=== PATIENT | female | born 1990 | race Caucasian/White ===

== ENCOUNTER 2019-06-06 07:20 | Inpatient (IN) | payer BC ==
--- NOTE | 2019-06-06 07:45 | PCM.LDHP ---
L&D History of Present Illness - General Date of Service: 06/06/19 Admit Problem/Dx: Admission Diagnosis/Problem Admission Diagnosis/Problem Source of Information: Patient History Limitations: Reports: No Limitations - History of Present Illness Introduction:: 28-year-old 001 OSCAR 06/11/19 estimated gestational age today is 39 weeks and 2 days. Patient gestational diabetic treated with diet only during this . Previous delivery was 04/14/2008 7 lbs. 9 oz., spontaneous vaginal delivery patient is GBS carrier. Antibiotics will be started. Patient's cervix on presentation to labor and delivery is 1 cm dilated 20% effaced soft posterior -3 vertex presentation, slight change from previous exam in the clinic on 05/31/19. 12/26/18 blood type O-positive antibody screen negative hemoglobin/hematocrit 12.9 /37.4% platelets 171,000 rubella immune, serology nonreactive, urine culture mixed zuleika, hepatitis B surface antigen negative, HIV negative, GC and chlamydia probe negative 03/20/19 end illness/medical pro 0.9/38.3 platelets 183,001 hour OB glucose screen 150 serology nonreactive. 03/22/19 3 hour glucose tolerance test fasting 77, 1 hour 185, two-hour 183, 3 hour 116. group B strep positive Plan induction of labor and delivery. Tdap given 25 April 2019 12/26/18 ultrasound obtained on 10/24/18 7 weeks 1 day estimated date of confinement by that ultrasound 06/11/19. By LMP OSCAR 05/23/19. The working OSCAR has been 06/11/19 since that ultrasound at 7 weeks 1 day. Improves with: Reports: None Worsens with: Reports: None Associated Symptoms: Reports: N - Related Data Allergies/Adverse Reactions: Allergies Allergy/AdvReac Type Severity Reaction Status Date / Time No Known Allergies Allergy Verified 06/06/19 07:45 Past Medical History : 2 Para: 1 (1001) LMP (Approximate): H&P Review of Systems - Review of Systems: Review Of Systems: See Below General: Reports: No Symptoms HEENT: Reports: No Symptoms Pulmonary: Reports: No Symptoms Cardiovascular: Reports: No Symptoms Gastrointestinal: Reports: No Symptoms Genitourinary: Reports: No Symptoms Musculoskeletal: Reports: No Symptoms Skin: Reports: No Symptoms Psychiatric: Reports: No Symptoms Neurological: Reports: No Symptoms Hematologic/Lymphatic: Reports: No Symptoms Immunologic: Reports: No Symptoms L&D Exam - Exam Exam: See Below - OB Specific Fundal Height In cm: 39 Movement: Active Heart Tones: Present Heart Tones per Min: 135 Heart Rate (FHR) Variability: Moderate (6-25 bmp) Presentation: Vertex - Rene Score Rene Score Cervix Position: Posterior Rene Score Consistency: Soft Rene Score Effacement: 0-30% Rene Score Dilation: 1-2 cm Rene Score 's Station: -3 Rene Score Total: 3 - Exam General: Alert, Oriented HEENT: Conjunctiva Clear, Mucosa Moist & [place], Normal Nasal Septum, Posterior Pharynx Clear, TMs Clear, PERRLA Neck: Supple, Trachea Midline Lungs: Clear to Auscultation, Normal Respiratory Effort Cardiovascular: Regular Rate, Regular Rhythm GI/Abdominal Exam: Normal Bowel Sounds, Soft, Non-Tender Genitourinary: Normal external exam, Normal bimanual exam, Normal speculum exam Back Exam: Normal Inspection, Full Range of Motion Extremities: Normal Inspection, Normal Range of Motion, Non-Tender, No Pedal Edema, Normal Capillary Refill Skin: Warm, Dry, Intact Neurological: Reflexes Equal Bilateral Psychiatric: Alert, Normal Affect, Normal Mood - Problem List (1) 39 weeks gestation of SNOMED Code(s): 96507136 ICD Code: Z3A.39 - 39 WEEKS GESTATION OF Status: Acute Current Visit: Yes (2) Gestational diabetes mellitus (GDM) affecting , antepartum SNOMED Code(s): 93153215185776, 97360805852129 ICD Code: O24.419 - GESTATIONAL DIABETES MELLITUS IN , UNSP CONTROL Status: Acute Current Visit: Yes (3) GBS (group B Streptococcus carrier), +RV culture, currently SNOMED Code(s): 5535540556400, 605264127, 4804868924435 ICD Code: O99.820 - STREPTOCOCCUS B CARRIER STATE COMPLICATING Status: Acute Current Visit: Yes Problem List Initiated/Reviewed/Updated: No
[2019-06-06] MEDS ORDERED: Ondansetron 4 MG/2 ML SDV IVPUSH PRN (07:47)
[2019-06-06] MEDS ORDERED: Nalbuphine 10 MG/1 ML Vial IVPUSH PRN (07:47)
[2019-06-06] MEDS ORDERED: Sodium Chloride 0.9% 10 ML Syringe FLUSH PRN (07:47)
[2019-06-06] MEDS ORDERED: fentaNYL 100 MCG/2 ML SDV EPIDUR PRN (07:59)
[2019-06-06] MEDS ORDERED: diphenhydrAMINE 50 MG/ML SDV IVPUSH PRN (07:59)
[2019-06-06] MEDS ORDERED: Ampicillin 2 GM in Sodium Chloride 0.9% 100 ML IV ONE (08:00)
[2019-06-06] MEDS ORDERED: Oxytocin/Lactated Ringers 10 UNIT/1,000 ML BAG IV SCH (08:00)
[2019-06-06] MEDS ORDERED: Oxytocin/Lactated Ringers 20 UNIT/1,000 ML BAG IV SCH (08:00)
[2019-06-06] MEDS: Misoprostol 25 MCG (1/4 of 100 MCG) Tab VAG SCH ×6 (08:01→23:41)
--- NOTE | 2019-06-06 08:05 | PCM.PREANE ---
Preanesthetic Assessment - Procedure Proposed Procedure: raad - Anesthesia/Transfusion/Family Hx Anesthesia History: Prior Anesthesia Without Reaction Family History of Anesthesia Reaction: No Transfusion History: No Prior Transfusion(s) - Review of Systems General: No Symptoms Pulmonary: No Symptoms Cardiovascular: No Symptoms Gastrointestinal: No Symptoms Neurological: No Symptoms Other: Reports: Diabetes (gestational diabetes), Thyroid Problems (right thyroid removed due to nodule) - Physical Assessment Vital Signs: 123/85 94 16 97.6 Height: 5 ft 6 in Weight: 93.894 kg ASA Class: 2 Mental Status: Alert & Oriented x3 Airway Class: Mallampati = 1 Dentition: Reports: Normal Dentition Thyro-Mental Finger Breadths: 3 Mouth Opening Finger Breadths: 3 ROM/Head Extension: Full Lungs: Clear to Auscultation, Normal Respiratory Effort Cardiovascular: Regular Rate, Regular Rhythm - Allergies Allergies/Adverse Reactions: Allergies Allergy/AdvReac Type Severity Reaction Status Date / Time No Known Allergies Allergy Verified 06/06/19 07:45 - Blood Blood Available: No - Acknowledgements Anesthesia Type Planned: Epidural Pt an Appropriate Candidate for the Planned Anesthesia: Yes Alternatives and Risks of Anesthesia Discussed w Pt/Guardian: Yes Pt/Guardian Understands and Agrees with Anesthesia Plan: Yes PreAnesthesia Questionnaire Cardiovascular History: Reports: None Respiratory History: Reports: None Gastrointestinal History: Reports: GERD (with ) : 2 (39 weeks) Para: 1 Endocrine/Metabolic History: Reports: None Oncologic (Cancer) History: Reports: None - Past Surgical History Endocrine Surgical History: Reports: Thyroid Biopsy - History Comment History Comment: prnatal vit. vits and probiiotic - SUBSTANCE USE Smoking Status *Q: Former Smoker (quit 7 months ago) Tobacco Use Within Last Twelve Months: Cigarettes Second Hand Smoke Exposure: Yes Days Per Week of Alcohol Use: 0 Recreational Drug Use History: No - CURRENT (IN HOUSE) MEDS Current Meds: Current Medications Ampicillin Sodium 2 gm/ Sodium (Chloride) 100 mls @ 200 mls/hr IV ONETIME ONE Stop: 06/06/19 08:29 Ampicillin Sodium 1 gm/ Sodium (Chloride) 100 mls @ 200 mls/hr IV Q4H JONATHAN Lactated Ringer's (Ringers, Lactated) 1,000 mls @ 100 mls/hr IV ASDIRECTED JONATHAN Oxytocin/Lactated Ringer's (Pitocin In Lr 20 Units/1,000 Ml) 20 unit in 1,000 mls @ 500 mls/hr IV .CONTINUOUS JONATHAN Oxytocin/Lactated Ringer's (Pitocin In Lr 10 Units/1,000 Ml) 10 unit in 1,000 mls @ 12 mls/hr IV TITRATE JONATHAN; Protocol Misoprostol (Cytotec) 50 mcg VAG Q3H JONATHAN Nalbuphine HCl (Nubain) 10 mg IVPUSH Q2H PRN PRN Reason: Pain Ondansetron HCl (Zofran) 4 mg IVPUSH Q4H PRN PRN Reason: Nausea/Vomiting Sodium Chloride (Saline Flush) 10 ml FLUSH ASDIRECTED PRN PRN Reason: Keep Vein Open
[2019-06-06] MEDS: Ampicillin 1 GM in Sodium Chloride 0.9% 100 ML IV SCH ×4 (12:11→23:34)
--- NOTE | 2019-06-06 13:11 | PCM.SN ---
- Free Text/Narrative Note: At 1305 hours cervix 1 cm, 50%, soft, posterior, bladder feels full and head at >-4 Cat I FHR.
[2019-06-06] MEDS: Lactated Ringers 1,000 ML IV SCH (13:12)
--- NOTE | 2019-06-06 16:23 | PCM.SN ---
- Free Text/Narrative Note: Cervix 1 cm, 50%, soft, posterior, vertex-3. Continue Cytotec 25 mcg at 1700, 2000, 2300, and 0200 then start Pitocin at 0500, if no contraindication. Cat I FHR.
[2019-06-06] MEDS ORDERED: fentaNYL/Bupivacaine in NS PF 2 MCG-0.125% 250 ML Premix EPIDUR PRN (18:58)
[2019-06-07] MEDS: Misoprostol 25 MCG (1/4 of 100 MCG) Tab VAG SCH ×2 (02:15→08:51)
[2019-06-07] MEDS: Ampicillin 1 GM in Sodium Chloride 0.9% 100 ML IV SCH ×4 (04:18→15:43)
[2019-06-07] MEDS: Lactated Ringers 1,000 ML IV SCH ×4 (04:19→13:57)
--- NOTE | 2019-06-07 07:28 | PCM.SN ---
- Free Text/Narrative Note: Pitocin started at 0600 after Cytotec q3h during the night. Cervix 2 cm, 50% effaced, soft, mid-position. Amniotomy performed at 0724 clear fluid. Cat I FHR before and after amniotomy.
[2019-06-07] MEDS: ePHEDrine 50 MG/ML SDV IVPUSH PRN ×2 (13:43→13:55)
--- NOTE | 2019-06-07 16:16 | PCM.SN ---
- Free Text/Narrative Note: Complete and beginning to push. Decelerations with pushing (early), moderate beat to beat variability, tachycardia noted. Patient stable.
--- NOTE | 2019-06-07 17:57 | PCM.DEL ---
L & D Note - General Info Date of Service: 06/07/19 Mother's Due Date: 06/11/19 - Delivery Note Labor: Augmented by ARM, Augmented by Oxytocin Cervical Ripening Method: Misoprostil Delivery Outcome: Livebirth (Female liveborn at 1718 hrs. on Wednesday06/07/19 over second-degree midline laceration under epidural anesthesia with cervical laceration also noted at 3:00 repaired see below Apgars 8/8 at one and 5 minutes. Weight 3400 g/7 pounds 7.9 ounces. LOP) Delivery Method: Spontaneous Vaginal Delivery-Single Infant Delivery Mode: Spontaneous Presentation: Left Occiput Posterior (LOP) Nuchal Cord: None Prep: Povidone-Iodine (Betadine (Cord around left lower extremity) Anesthesia Type: Epidural Amniotic Fluid Description: Clear Episiotomy Type: None Laceration: 2nd Degree (Midline), Cervical (3:00) Suture type: Other (Monocryl 2) Suture size: 3-0 Placenta: Intact, Spontaneous (172Wednesday06/07/19) Cord: 3 Vessels Estimated Blood Loss: 500 Resuscitation Needed: No : Suctioned, Bulb Syringe, Stimulated, Warmed, [place] Used, Warmer Used Provider: Karri Dominguez Score 1 min: 8 Score 5 min: 8 Induction Criteria - Rene Score Rene Score Dilation: 1-2 cm Rene Score Effacement: 40-50% Rene Score 's Station: -3 Rene Score Consistency: Soft Rene Score Cervix Position: Posterior Rene Score Total: 4 Rene Score Presenting Part: Reports: Cephalic - Induction Gestational Age >/= 39 wks: Yes Medical Indication: Gestational diabetes Estimated Pelvis: Reports: Adequate Reassuring Monitoring Strip: Yes Absence of Tachy Systole: Yes - Augmentation Estimated Pelvis: Reports: Adequate Weight Estimated:: Reports: AGA Reassuring Monitoring Strip: Yes Absence of Tachy Systole: Yes - General Info Date of Service: 06/07/19 Functional Status: Reports: Pain Controlled - Review of Systems General: Reports: No Symptoms HEENT: Reports: No Symptoms Pulmonary: Reports: No Symptoms Cardiovascular: Reports: No Symptoms Gastrointestinal: Reports: No Symptoms Genitourinary: Reports: No Symptoms Musculoskeletal: Reports: No Symptoms Skin: Reports: No Symptoms Neurological: Reports: No Symptoms Psychiatric: Reports: No Symptoms - Patient Data Vitals - Most Recent: Last Vital Signs Temp 97.6 F 06/06/19 07:47 Pulse 94 06/06/19 07:47 Resp 16 06/06/19 07:47 BP 123/84 06/06/19 07:47 Pulse Ox Weight - Most Recent: 207 lb I&O - Last 24 Hours: Intake & Output 06/07/19 06/07/19 06/07/19 06:59 14:59 22:59 Intake Total 120 Balance 120 Lab Results Last 24 Hours: Laboratory Results - last 24 hr 06/06/19 06/06/19 06/07/19 Range/Units 08:23 20:26 00:14 POC Glucose 89 82 (70-105) mg/dL RPR Non-reactive (NONREACTIVE) 06/07/19 06/07/19 06/07/19 Range/Units 04:23 07:13 12:45 POC Glucose 67 L 71 86 (70-105) mg/dL RPR (NONREACTIVE) Med Orders - Current: Current Medications Diphenhydramine HCl (Benadryl) 25 mg IVPUSH Q6H PRN PRN Reason: pruritis Ephedrine Sulfate (Ephedrine Sulfate) 5 mg IVPUSH ASDIRECTED PRN PRN Reason: Hypotension Last Admin: 06/07/19 13:55 Dose: 5 mg Fentanyl (Sublimaze) 100 mcg EPIDUR Q3H PRN PRN Reason: Pain Last Admin: 06/07/19 10:29 Dose: 100 mcg Fentanyl/Bupivacaine HCl (Fentanyl/Bupivacaine/Ns 2 Mcg-0.125% 250 Ml) 2 mcg EPIDUR ONETIME PRN PRN Reason: Cramping Last Admin: 06/07/19 10:28 Dose: 2 mcg Ampicillin Sodium 1 gm/ Sodium (Chloride) 100 mls @ 200 mls/hr IV Q4H JONATHAN Last Admin: 06/07/19 15:43 Dose: 200 mls/hr Lactated Ringer's (Ringers, Lactated) 1,000 mls @ 100 mls/hr IV ASDIRECTED JONATHAN Last Admin: 06/07/19 13:57 Dose: 100 mls/hr Oxytocin/Lactated Ringer's (Pitocin In Lr 20 Units/1,000 Ml) 20 unit in 1,000 mls @ 500 mls/hr IV .CONTINUOUS JONATHAN Last Admin: 06/07/19 15:47 Dose: 500 mls/hr Oxytocin/Lactated Ringer's (Pitocin In Lr 10 Units/1,000 Ml) 10 unit in 1,000 mls @ 12 mls/hr IV TITRATE JONATHAN; Protocol Last Titration: 06/07/19 14:05 Dose: 10 munits/min, 60 mls/hr Nalbuphine HCl (Nubain) 10 mg IVPUSH Q2H PRN PRN Reason: Pain Ondansetron HCl (Zofran) 4 mg IVPUSH Q4H PRN PRN Reason: Nausea/Vomiting Sodium Chloride (Saline Flush) 10 ml FLUSH ASDIRECTED PRN PRN Reason: Keep Vein Open Discontinued Medications Ampicillin Sodium 2 gm/ Sodium (Chloride) 100 mls @ 200 mls/hr IV ONETIME ONE Stop: 06/06/19 08:29 Last Admin: 06/06/19 08:01 Dose: 200 mls/hr Misoprostol (Cytotec) 50 mcg VAG Q3H JONATHAN Last Admin: 06/06/19 17:03 Dose: 25 mcg Misoprostol (Cytotec) 25 mcg VAG Q3H JONATHAN Last Admin: 06/07/19 08:51 Dose: Not Given - Exam General: Alert, Oriented HEENT: Pupils Equal, Mucous Membr. Moist/[place] Neck: Supple Lungs: Clear to Auscultation, Normal Respiratory Effort Cardiovascular: Regular Rate, Regular Rhythm GI/Abdominal Exam: Normal Bowel Sounds, Soft, Non-Tender (Female) Exam: Normal External Exam Extremities: Normal Inspection, Normal Range of Motion, Non-Tender, No Pedal Edema, Normal Capillary Refill Skin: Warm, Dry, Intact Psy/Mental Status: Alert, Normal Affect, Normal Mood - Problem List & Annotations (1) 39 weeks gestation of SNOMED Code(s): 85735120 Code(s): Z3A.39 - 39 WEEKS GESTATION OF Status: Acute Current Visit: Yes (2) Gestational diabetes mellitus (GDM) affecting , antepartum SNOMED Code(s): 42954698351701, 38951734297791 Code(s): O24.419 - GESTATIONAL DIABETES MELLITUS IN , UNSP CONTROL Status: Acute Current Visit: Yes (3) GBS (group B Streptococcus carrier), +RV culture, currently SNOMED Code(s): 3321099064245, 070559785, 5210553610187 Code(s): O99.820 - STREPTOCOCCUS B CARRIER STATE COMPLICATING Status: Acute Current Visit: Yes (4) Second degree laceration of perineum, delivered, current hospitalization SNOMED Code(s): 061087659, 833338988 Code(s): O70.1 - SECOND DEGREE PERINEAL LACERATION DURING DELIVERY Status: Acute Current Visit: Yes (5) Cervical laceration SNOMED Code(s): 673408251 Code(s): S37.63XA - LACERATION OF UTERUS, INITIAL ENCOUNTER Status: Acute Current Visit: Yes Qualifiers: Encounter type: initial encounter Qualified Code(s): S37.63XA - Laceration of uterus, initial encounter Annotation/Comment:: sutured - Problem List Review Problem List Initiated/Reviewed/Updated: No - My Orders Last 24 Hours: My Active Orders 06/07/19 00:00 Blood Glucose Check, Bedside [RC] Q4HR - Assessment Assessment:: Delivered ,
[2019-06-07] MEDS ORDERED: Witch Hazel Medicated Pads 40/Jar TOP PRN (18:07)
[2019-06-07] MEDS ORDERED: Lanolin 100% Cream 7 GM Tube TOP PRN (18:07)
[2019-06-07] MEDS ORDERED: Acetaminophen 325 MG Tab PO PRN (18:07)
[2019-06-07] MEDS ORDERED: Benzocaine/Menthol 20%-0.5% Spray 56 GM Canister TOP PRN (18:07)
[2019-06-07] MEDS: Ibuprofen 600 MG Tab PO PRN (21:39)
[2019-06-08] MEDS ORDERED: Bupivacaine 0.25% 10 ML SDV ONE
[2019-06-08] MEDS: Ibuprofen 600 MG Tab PO PRN ×5 (03:22→23:35)
--- NOTE | 2019-06-08 08:43 | PCM.PN ---
- General Info Date of Service: 06/08/19 Functional Status: Reports: Pain Controlled - Review of Systems General: Reports: No Symptoms HEENT: Reports: No Symptoms Pulmonary: Reports: No Symptoms Cardiovascular: Reports: No Symptoms Gastrointestinal: Reports: No Symptoms Genitourinary: Reports: No Symptoms Musculoskeletal: Reports: No Symptoms Skin: Reports: No Symptoms Neurological: Reports: No Symptoms Psychiatric: Reports: No Symptoms - Patient Data Vitals - Most Recent: Last Vital Signs Temp 97.5 F 06/08/19 04:55 Pulse 58 L 06/08/19 04:55 Resp 14 06/08/19 04:55 BP 108/61 06/08/19 04:55 Pulse Ox 99 06/08/19 04:55 Weight - Most Recent: 207 lb I&O - Last 24 Hours: Intake & Output 06/07/19 06/08/19 06/08/19 22:59 06:59 14:59 Intake Total 120 Balance 120 Lab Results Last 24 Hours: Laboratory Results - last 24 hr 06/07/19 06/08/19 Range/Units 12:45 04:30 WBC 11.95 H (3.98-10.04) K/mm3 RBC 3.50 L (3.98-5.22) M/mm3 Hgb 9.4 L D (11.2-15.7) gm/dl Hct 28.6 L (34.1-44.9) % MCV 81.7 (79.4-94.8) fl MCH 26.9 (25.6-32.2) pg MCHC 32.9 (32.2-35.5) g/dl RDW Std Deviation 39.3 (36.4-46.3) fL Plt Count 135 L (182-369) K/mm3 MPV 11.2 (9.4-12.3) fl Neut % (Auto) 74.3 H (34.0-71.1) % Lymph % (Auto) 18.0 L (19.3-51.7) % [place] % (Auto) 6.9 (4.7-12.5) % Eos % (Auto) 0.4 L (0.7-5.8) Baso % (Auto) 0.1 (0.1-1.2) % Neut # (Auto) 8.89 H (1.56-6.13) K/mm3 Lymph # (Auto) 2.15 (1.18-3.74) K/mm3 [place] # (Auto) 0.82 H (0.24-0.36) K/mm3 Eos # (Auto) 0.05 (0.04-0.36) K/mm3 Baso # (Auto) 0.01 (0.01-0.08) K/mm3 POC Glucose 86 (70-105) mg/dL Med Orders - Current: Current Medications Acetaminophen (Tylenol) 650 mg PO Q4H PRN PRN Reason: mild pain or fever Last Admin: 06/08/19 00:45 Dose: 650 mg Benzocaine/Menthol (Dermoplast Pain Relief Babbitt) 0 gm TOP ASDIRECTED PRN PRN Reason: Perineal Comfort Measure Last Admin: 06/07/19 19:20 Dose: 1 spray Docusate Sodium (Colace) 100 mg PO BID PRN PRN Reason: Constipation Emollient Ointment (Lansinoh Hpa) 0 gm TOP ASDIRECTED PRN PRN Reason: Sore Nipples Last Admin: 06/08/19 04:52 Dose: 1 dose Ibuprofen (Motrin) 600 mg PO Q4H PRN PRN Reason: Mild pain or fever Last Admin: 06/08/19 03:22 Dose: 600 mg Witch Stephanie (Tucks) 1 pad TOP ASDIRECTED PRN PRN Reason: Perineal Comfort Measure Last Admin: 06/07/19 19:19 Dose: 1 pad Discontinued Medications Diphenhydramine HCl (Benadryl) 25 mg IVPUSH Q6H PRN PRN Reason: pruritis Ephedrine Sulfate (Ephedrine Sulfate) 5 mg IVPUSH ASDIRECTED PRN PRN Reason: Hypotension Last Admin: 06/07/19 13:55 Dose: 5 mg Fentanyl (Sublimaze) 100 mcg EPIDUR Q3H PRN PRN Reason: Pain Last Admin: 06/07/19 10:29 Dose: 100 mcg Fentanyl/Bupivacaine HCl (Fentanyl/Bupivacaine/Ns 2 Mcg-0.125% 250 Ml) 2 mcg EPIDUR ONETIME PRN PRN Reason: Cramping Last Admin: 06/07/19 10:28 Dose: 2 mcg Ampicillin Sodium 2 gm/ Sodium (Chloride) 100 mls @ 200 mls/hr IV ONETIME ONE Stop: 06/06/19 08:29 Last Admin: 06/06/19 08:01 Dose: 200 mls/hr Ampicillin Sodium 1 gm/ Sodium (Chloride) 100 mls @ 200 mls/hr IV Q4H JONATHAN Last Admin: 06/07/19 15:43 Dose: 200 mls/hr Lactated Ringer's (Ringers, Lactated) 1,000 mls @ 100 mls/hr IV ASDIRECTED JONATHAN Last Admin: 06/07/19 13:57 Dose: 100 mls/hr Oxytocin/Lactated Ringer's (Pitocin In Lr 20 Units/1,000 Ml) 20 unit in 1,000 mls @ 500 mls/hr IV .CONTINUOUS JONATHAN Last Admin: 06/07/19 15:47 Dose: 500 mls/hr Oxytocin/Lactated Ringer's (Pitocin In Lr 10 Units/1,000 Ml) 10 unit in 1,000 mls @ 12 mls/hr IV TITRATE JONATHAN; Protocol Last Titration: 06/07/19 14:05 Dose: 10 munits/min, 60 mls/hr Misoprostol (Cytotec) 50 mcg VAG Q3H JONATHAN Last Admin: 06/06/19 17:03 Dose: 25 mcg Misoprostol (Cytotec) 25 mcg VAG Q3H JONATHAN Last Admin: 06/07/19 08:51 Dose: Not Given Nalbuphine HCl (Nubain) 10 mg IVPUSH Q2H PRN PRN Reason: Pain Ondansetron HCl (Zofran) 4 mg IVPUSH Q4H PRN PRN Reason: Nausea/Vomiting Sodium Chloride (Saline Flush) 10 ml FLUSH ASDIRECTED PRN PRN Reason: Keep Vein Open - Exam General: Alert, Oriented HEENT: Pupils Equal Neck: Supple Lungs: Clear to Auscultation, Normal Respiratory Effort Cardiovascular: Regular Rate, Regular Rhythm GI/Abdominal Exam: Normal Bowel Sounds, Soft, Non-Tender Extremities: Normal Inspection, Normal Range of Motion, Non-Tender, No Pedal Edema, Normal Capillary Refill Skin: Warm, Dry, Intact Psy/Mental Status: Alert, Normal Affect, Normal Mood - Problem List & Annotations (1) 39 weeks gestation of SNOMED Code(s): 13162166 Code(s): Z3A.39 - 39 WEEKS GESTATION OF Status: Acute Current Visit: Yes (2) Gestational diabetes mellitus (GDM) affecting , antepartum SNOMED Code(s): 36617507049818, 63728796942599 Code(s): O24.419 - GESTATIONAL DIABETES MELLITUS IN , UNSP CONTROL Status: Acute Current Visit: Yes (3) GBS (group B Streptococcus carrier), +RV culture, currently SNOMED Code(s): 8917600105289, 449610669, 1136543980787 Code(s): O99.820 - STREPTOCOCCUS B CARRIER STATE COMPLICATING Status: Acute Current Visit: Yes (4) Second degree laceration of perineum, delivered, current hospitalization SNOMED Code(s): 510219007, 563274389 Code(s): O70.1 - SECOND DEGREE PERINEAL LACERATION DURING DELIVERY Status: Acute Current Visit: Yes (5) Cervical laceration SNOMED Code(s): 850580690 Code(s): S37.63XA - LACERATION OF UTERUS, INITIAL ENCOUNTER Status: Acute Current Visit: Yes Qualifiers: Encounter type: initial encounter Qualified Code(s): S37.63XA - Laceration of uterus, initial encounter Annotation/Comment:: sutured (6) Anemia, SNOMED Code(s): 420495874 Code(s): O90.81 - ANEMIA OF THE PUERPERIUM Status: Acute Current Visit: Yes - Problem List Review Problem List Initiated/Reviewed/Updated: No - My Orders Last 24 Hours: My Active Orders 06/07/19 18:07 Activity as Tolerated [RC] PER UNIT ROUTINE Vital Signs [RC] 03,09,15,21 Acetaminophen [Tylenol] 650 mg PO Q4H PRN Benzocaine/Menthol [Dermoplast Pain Relief Babbitt] See Dose Instructions TOP ASDIRECTED PRN Docusate Sodium [Colace] 100 mg PO BID PRN Ibuprofen [Motrin] 600 mg PO Q4H PRN Lanolin [Lansinoh HPA] See Dose Instructions TOP ASDIRECTED PRN Witch Stephanie [Tucks] 1 pad TOP ASDIRECTED PRN Assess Lochia [WOMSER] Per Unit Routine Assess Uterine Involution [WOMSER] Per Unit Routine Breast Pump [WOMSER] Per Unit Routine Medication Administration Instruction [OM.PC] Routine Perineal Care [OM.PC] Per Unit Routine Peripheral IV Discontinue [OM.PC] Routine Sitz Bath [OM.PC] Per Unit Routine 06/07/19 18:15 Heat Therapy [OM.PC] PRN 06/07/19 Dinner Regular Diet [DIET] 06/08/19 18:15 Heat Therapy [OM.PC] PRN - Assessment Assessment:: Delivered , - Plan Plan:: Doing well, not symptomatic from anemia. Anemia felt to be from normal bleeding and the cervical laceration which was repaired. Probably home tomorrow.
[2019-06-08] MEDS: Docusate Sodium 100 MG Cap PO PRN (09:09)
--- NOTE | 2019-06-08 11:14 | PCM48HPAN ---
Post Anesthesia Note - EVALUATION WITHIN 48HRS OF ANESTHETIC Vital Signs in Normal Range: Yes Patient Participated in Evaluation: Yes Respiratory Function Stable: Yes Airway Patent: Yes Cardiovascular Function Stable: Yes Hydration Status Stable: Yes Pain Control Satisfactory: Yes Nausea and Vomiting Control Satisfactory: Yes Mental Status Recovered: Yes Vital Signs: Last Vital Signs Temp 36.8 C 06/08/19 09:03 Pulse 72 06/08/19 09:03 Resp 16 06/08/19 09:03 BP 127/91 H 06/08/19 09:03 Pulse Ox 99 06/08/19 09:03 - COMMENTS/OBSERVATIONS Free Text/Narrative:: no anesthesia complications noted
[2019-06-09] MEDS: Ibuprofen 600 MG Tab PO PRN ×2 (03:55→10:28)
--- NOTE | 2019-06-09 10:19 | PCM.DCSUM1 ---
Discharge Summary - Hospital Course Free Text/Narrative:: [facility] LIVE L/D Delivery Note Patient Name: ROSI GRIGSBY Date of : 88 Patient Status: Inpatient Attending Provider: Karri Dominguez Date: 06/07/19 17:52 Initialization Date: 06/07/19 17:52 L & D Note - General Info Date of Service: 06/07/19 Mother's Due Date: 06/11/19 - Delivery Note Labor: Augmented by ARM, Augmented by Oxytocin Cervical Ripening Method: Misoprostil Delivery Outcome: Livebirth (Female liveborn at 1718 hrs. on Wednesday06/07/19 over second-degree midline laceration under epidural anesthesia with cervical laceration also noted at 3:00 repaired see below Apgars 8/8 at one and 5 minutes. Weight 3400 g/7 pounds 7.9 ounces. LOP) Delivery Method: Spontaneous Vaginal Delivery-Single Delivery Mode: Spontaneous Presentation: Left Occiput Posterior (LOP) Nuchal Cord: None Prep: Povidone-Iodine (Betadine (Cord around left lower extremity) Anesthesia Type: Epidural Amniotic Fluid Description: Clear Episiotomy Type: None Laceration: 2nd Degree (Midline), Cervical (3:00) Suture type: Other (Monocryl 2) Suture size: 3-0 Placenta: Intact, Spontaneous (1721 Wednesday06/07/19) Cord: 3 Vessels Estimated Blood Loss: 500 Resuscitation Needed: No : Suctioned, Bulb Syringe, Stimulated, Warmed, Reading Used, Warmer Used Provider: Karri Dominguez Score 1 min: 8 Score 5 min: 8 Induction Criteria - Rene Score Rene Score Dilation: 1-2 cm Rene Score Effacement: 40-50% Rene Score 's Station: -3 Rene Score Consistency: Soft Rene Score Cervix Position: Posterior Rene Score Total: 4 Rene Score Presenting Part: Reports: Cephalic - Induction Gestational Age >/= 39 wks: Yes Medical Indication: Gestational diabetes Estimated Pelvis: Reports: Adequate Reassuring Monitoring Strip: Yes Absence of Tachy Systole: Yes - Augmentation Estimated Pelvis: Reports: Adequate Weight Estimated:: Reports: AGA Reassuring Monitoring Strip: Yes Absence of Tachy Systole: Yes - General Info Date of Service: 06/07/19 Functional Status: Reports: Pain Controlled - Review of Systems General: Reports: No Symptoms HEENT: Reports: No Symptoms Pulmonary: Reports: No Symptoms Cardiovascular: Reports: No Symptoms Gastrointestinal: Reports: No Symptoms Genitourinary: Reports: No Symptoms Musculoskeletal: Reports: No Symptoms Skin: Reports: No Symptoms Neurological: Reports: No Symptoms Psychiatric: Reports: No Symptoms - Patient Data Vitals - Most Recent: Last Vital Signs Temp 97.6 F 06/06/19 07:47 Pulse 94 06/06/19 07:47 Resp 16 06/06/19 07:47 BP 123/84 06/06/19 07:47 Pulse Ox Weight - Most Recent: 207 lb I&O - Last 24 Hours: Intake & Output 06/07/19 06/07/19 06/07/19 06:59 14:59 22:59 Intake Total 120 Balance 120 Lab Results Last 24 Hours: Laboratory Results - last 24 hr 06/06/19 06/06/19 06/07/19 Range/Units 08:23 20:26 00:14 POC Glucose 89 82 (70-105) mg/dL RPR Non-reactive (NONREACTIVE) 06/07/19 06/07/19 06/07/19 Range/Units 04:23 07:13 12:45 POC Glucose 67 L 71 86 (70-105) mg/dL RPR (NONREACTIVE) Med Orders - Current: Current Medications Diphenhydramine HCl (Benadryl) 25 mg IVPUSH Q6H PRN PRN Reason: pruritis Ephedrine Sulfate (Ephedrine Sulfate) 5 mg IVPUSH ASDIRECTED PRN PRN Reason: Hypotension Last Admin: 06/07/19 13:55 Dose: 5 mg Fentanyl (Sublimaze) 100 mcg EPIDUR Q3H PRN PRN Reason: Pain Last Admin: 06/07/19 10:29 Dose: 100 mcg Fentanyl/Bupivacaine HCl (Fentanyl/Bupivacaine/Ns 2 Mcg-0.125% 250 Ml) 2 mcg EPIDUR ONETIME PRN PRN Reason: Cramping Last Admin: 06/07/19 10:28 Dose: 2 mcg Ampicillin Sodium 1 gm/ Sodium (Chloride) 100 mls @ 200 mls/hr IV Q4H JONATHAN Last Admin: 06/07/19 15:43 Dose: 200 mls/hr Lactated Ringer's (Ringers, Lactated) 1,000 mls @ 100 mls/hr IV ASDIRECTED JONATHAN Last Admin: 06/07/19 13:57 Dose: 100 mls/hr Oxytocin/Lactated Ringer's (Pitocin In Lr 20 Units/1,000 Ml) 20 unit in 1,000 mls @ 500 mls/hr IV .CONTINUOUS JONATHAN Last Admin: 06/07/19 15:47 Dose: 500 mls/hr Oxytocin/Lactated Ringer's (Pitocin In Lr 10 Units/1,000 Ml) 10 unit in 1,000 mls @ 12 mls/hr IV TITRATE JONATHAN; Protocol Last Titration: 06/07/19 14:05 Dose: 10 munits/min, 60 mls/hr Nalbuphine HCl (Nubain) 10 mg IVPUSH Q2H PRN PRN Reason: Pain Ondansetron HCl (Zofran) 4 mg IVPUSH Q4H PRN PRN Reason: Nausea/Vomiting Sodium Chloride (Saline Flush) 10 ml FLUSH ASDIRECTED PRN PRN Reason: Keep Vein Open Discontinued Medications Ampicillin Sodium 2 gm/ Sodium (Chloride) 100 mls @ 200 mls/hr IV ONETIME ONE Stop: 06/06/19 08:29 Last Admin: 06/06/19 08:01 Dose: 200 mls/hr Misoprostol (Cytotec) 50 mcg VAG Q3H JONATHAN Last Admin: 06/06/19 17:03 Dose: 25 mcg Misoprostol (Cytotec) 25 mcg VAG Q3H JONATHAN Last Admin: 06/07/19 08:51 Dose: Not Given - Exam General: Alert, Oriented HEENT: Pupils Equal, Mucous Membr. Moist/Hood Neck: Supple Lungs: Clear to Auscultation, Normal Respiratory Effort Cardiovascular: Regular Rate, Regular Rhythm GI/Abdominal Exam: Normal Bowel Sounds, Soft, Non-Tender (Female) Exam: Normal External Exam Extremities: Normal Inspection, Normal Range of Motion, Non-Tender, No Pedal Edema, Normal Capillary Refill Skin: Warm, Dry, Intact Psy/Mental Status: Alert, Normal Affect, Normal Mood - Problem List & Annotations (1) 39 weeks gestation of SNOMED Code(s): 91262347 Code(s): Z3A.39 - 39 WEEKS GESTATION OF Status: Acute Current Visit: Yes (2) Gestational diabetes mellitus (GDM) affecting , antepartum SNOMED Code(s): 07766840917448, 56713599335310 Code(s): O24.419 - GESTATIONAL DIABETES MELLITUS IN , UNSP CONTROL Status: Acute Current Visit: Yes (3) GBS (group B Streptococcus carrier), +RV culture, currently SNOMED Code(s): 2669358715417, 476847501, 8323980196359 Code(s): O99.820 - STREPTOCOCCUS B CARRIER STATE COMPLICATING Status: Acute Current Visit: Yes (4) Second degree laceration of perineum, delivered, current hospitalization SNOMED Code(s): 382872881, 762982378 Code(s): O70.1 - SECOND DEGREE PERINEAL LACERATION DURING DELIVERY Status: Acute Current Visit: Yes (5) Cervical laceration SNOMED Code(s): 474519615 Code(s): S37.63XA - LACERATION OF UTERUS, INITIAL ENCOUNTER Status: Acute Current Visit: Yes Qualifiers: Encounter type: initial encounter Qualified Code(s): S37.63XA - Laceration of uterus, initial encounter Annotation/Comment:: sutured - Problem List Review Problem List Initiated/Reviewed/Updated: No - My Orders Last 24 Hours: My Active Orders 06/07/19 00:00 Blood Glucose Check, Bedside [RC] Q4HR - Assessment Assessment:: Delivered , HPI Initial Comments: [facility] LIVE L/D Delivery Note Patient Name: ROSI GRIGSBY Date of : 88 Patient Status: Inpatient Attending Provider: Karri Dominguez Date: 06/07/19 17:52 Initialization Date: 06/07/19 17:52 L & D Note - General Info Date of Service: 06/07/19 Mother's Due Date: 06/11/19 - Delivery Note Labor: Augmented by ARM, Augmented by Oxytocin Cervical Ripening Method: Misoprostil Delivery Outcome: Livebirth (Female liveborn at 1718 hrs. on Wednesday06/07/19 over second-degree midline laceration under epidural anesthesia with cervical laceration also noted at 3:00 repaired see below Apgars 8/8 at one and 5 minutes. Weight 3400 g/7 pounds 7.9 ounces. LOP) Infant Delivery Method: Spontaneous Vaginal Delivery-Single Delivery Mode: Spontaneous Presentation: Left Occiput Posterior (LOP) Nuchal Cord: None Prep: Povidone-Iodine (Betadine (Cord around left lower extremity) Anesthesia Type: Epidural Amniotic Fluid Description: Clear Episiotomy Type: None Laceration: 2nd Degree (Midline), Cervical (3:00) Suture type: Other (Monocryl 2) Suture size: 3-0 Placenta: Intact, Spontaneous (172006/07/19) Cord: 3 Vessels Estimated Blood Loss: 500 Resuscitation Needed: No [place]: Suctioned, Bulb Syringe, Stimulated, Warmed, Reading Used, Warmer Used Provider: Karri Dominguez Score 1 min: 8 Score 5 min: 8 Induction Criteria - Rene Score Rene Score Dilation: 1-2 cm Rene Score Effacement: 40-50% Rene Score Infant's Station: -3 Rene Score Consistency: Soft Rene Score Cervix Position: Posterior Rene Score Total: 4 Rene Score Presenting Part: Reports: Cephalic - Induction Gestational Age >/= 39 wks: Yes Medical Indication: Gestational diabetes Estimated Pelvis: Reports: Adequate Reassuring Monitoring Strip: Yes Absence of Tachy Systole: Yes - Augmentation Estimated Pelvis: Reports: Adequate Weight Estimated:: Reports: AGA Reassuring Monitoring Strip: Yes Absence of Tachy Systole: Yes - General Info Date of Service: 06/07/19 Functional Status: Reports: Pain Controlled - Review of Systems General: Reports: No Symptoms HEENT: Reports: No Symptoms Pulmonary: Reports: No Symptoms Cardiovascular: Reports: No Symptoms Gastrointestinal: Reports: No Symptoms Genitourinary: Reports: No Symptoms Musculoskeletal: Reports: No Symptoms Skin: Reports: No Symptoms Neurological: Reports: No Symptoms Psychiatric: Reports: No Symptoms - Patient Data Vitals - Most Recent: Last Vital Signs Temp 97.6 F 06/06/19 07:47 Pulse 94 06/06/19 07:47 Resp 16 06/06/19 07:47 BP 123/84 06/06/19 07:47 Pulse Ox Weight - Most Recent: 207 lb I&O - Last 24 Hours: Intake & Output 06/07/19 06/07/19 06/07/19 06:59 14:59 22:59 Intake Total 120 Balance 120 Lab Results Last 24 Hours: Laboratory Results - last 24 hr 06/06/19 06/06/19 06/07/19 Range/Units 08:23 20:26 00:14 POC Glucose 89 82 (70-105) mg/dL RPR Non-reactive (NONREACTIVE) 06/07/19 06/07/19 06/07/19 Range/Units 04:23 07:13 12:45 POC Glucose 67 L 71 86 (70-105) mg/dL RPR (NONREACTIVE) Med Orders - Current: Current Medications Diphenhydramine HCl (Benadryl) 25 mg IVPUSH Q6H PRN PRN Reason: pruritis Ephedrine Sulfate (Ephedrine Sulfate) 5 mg IVPUSH ASDIRECTED PRN PRN Reason: Hypotension Last Admin: 06/07/19 13:55 Dose: 5 mg Fentanyl (Sublimaze) 100 mcg EPIDUR Q3H PRN PRN Reason: Pain Last Admin: 06/07/19 10:29 Dose: 100 mcg Fentanyl/Bupivacaine HCl (Fentanyl/Bupivacaine/Ns 2 Mcg-0.125% 250 Ml) 2 mcg EPIDUR ONETIME PRN PRN Reason: Cramping Last Admin: 06/07/19 10:28 Dose: 2 mcg Ampicillin Sodium 1 gm/ Sodium (Chloride) 100 mls @ 200 mls/hr IV Q4H JONATHAN Last Admin: 06/07/19 15:43 Dose: 200 mls/hr Lactated Ringer's (Ringers, Lactated) 1,000 mls @ 100 mls/hr IV ASDIRECTED JONATHAN Last Admin: 06/07/19 13:57 Dose: 100 mls/hr Oxytocin/Lactated Ringer's (Pitocin In Lr 20 Units/1,000 Ml) 20 unit in 1,000 mls @ 500 mls/hr IV .CONTINUOUS JONATHAN Last Admin: 06/07/19 15:47 Dose: 500 mls/hr Oxytocin/Lactated Ringer's (Pitocin In Lr 10 Units/1,000 Ml) 10 unit in 1,000 mls @ 12 mls/hr IV TITRATE JONATHAN; Protocol Last Titration: 06/07/19 14:05 Dose: 10 munits/min, 60 mls/hr Nalbuphine HCl (Nubain) 10 mg IVPUSH Q2H PRN PRN Reason: Pain Ondansetron HCl (Zofran) 4 mg IVPUSH Q4H PRN PRN Reason: Nausea/Vomiting Sodium Chloride (Saline Flush) 10 ml FLUSH ASDIRECTED PRN PRN Reason: Keep Vein Open Discontinued Medications Ampicillin Sodium 2 gm/ Sodium (Chloride) 100 mls @ 200 mls/hr IV ONETIME ONE Stop: 06/06/19 08:29 Last Admin: 06/06/19 08:01 Dose: 200 mls/hr Misoprostol (Cytotec) 50 mcg VAG Q3H JONATHAN Last Admin: 06/06/19 17:03 Dose: 25 mcg Misoprostol (Cytotec) 25 mcg VAG Q3H [facility] Last Admin: 06/07/19 08:51 Dose: Not Given - Exam General: Alert, Oriented HEENT: Pupils Equal, Mucous Membr. Moist/Hood Neck: Supple Lungs: Clear to Auscultation, Normal Respiratory Effort Cardiovascular: Regular Rate, Regular Rhythm GI/Abdominal Exam: Normal Bowel Sounds, Soft, Non-Tender (Female) Exam: Normal External Exam Extremities: Normal Inspection, Normal Range of Motion, Non-Tender, No Pedal Edema, Normal Capillary Refill Skin: Warm, Dry, Intact Psy/Mental Status: Alert, Normal Affect, Normal Mood - Problem List & Annotations (1) 39 weeks gestation of SNOMED Code(s): 89475734 Code(s): Z3A.39 - 39 WEEKS GESTATION OF Status: Acute Current Visit: Yes (2) Gestational diabetes mellitus (GDM) affecting , antepartum SNOMED Code(s): 08786261375425, 38554882509277 Code(s): O24.419 - GESTATIONAL DIABETES MELLITUS IN , UNSP CONTROL Status: Acute Current Visit: Yes (3) GBS (group B Streptococcus carrier), +RV culture, currently SNOMED Code(s): 0918136952228, 353378114, 3034557376933 Code(s): O99.820 - STREPTOCOCCUS B CARRIER STATE COMPLICATING Status: Acute Current Visit: Yes (4) Second degree laceration of perineum, delivered, current hospitalization SNOMED Code(s): 040669344, 274170085 Code(s): O70.1 - SECOND DEGREE PERINEAL LACERATION DURING DELIVERY Status: Acute Current Visit: Yes (5) Cervical laceration SNOMED Code(s): 166960605 Code(s): S37.63XA - LACERATION OF UTERUS, INITIAL ENCOUNTER Status: Acute Current Visit: Yes Qualifiers: Encounter type: initial encounter Qualified Code(s): S37.63XA - Laceration of uterus, initial encounter Annotation/Comment:: sutured - Problem List Review Problem List Initiated/Reviewed/Updated: No - My Orders Last 24 Hours: My Active Orders 06/07/19 00:00 Blood Glucose Check, Bedside [RC] Q4HR - Assessment Assessment:: Delivered , Brief History: [facility] LIVE . L/D Delivery Note. Patient Name: ROSI GRIGSBYUTedical Record Number: [id number]. Date of : Patient Status: Inpatient. Attending Provider: Karri Dominguez Number: [id number]. Date: 06/07/19 17:52Initialization Date: 06/07/19 17:52. L & D Note. - General Info. Date of Service: 06/07/19. Mother's Due Date: 06/11/19. - Delivery Note. Labor: Augmented by ARM, Augmented by Oxytocin. Cervical Ripening Method: Misoprostil. Delivery Outcome: Livebirth (Female liveborn at 1718 hrs. on Wednesday06/07/19 over second-degree midline laceration under epidural anesthesia with cervical laceration also noted at 3: 00 repaired see below Apgars 8/8 at one and 5 minutes. Weight 3400 g/7 pounds 7.9 ounces. LOP). Delivery Method: Spontaneous Vaginal Delivery-Single. Delivery Mode: Spontaneous. Presentation: Left Occiput Posterior (LOP). Nuchal Cord: None. Prep: Povidone-Iodine (Betadine (Cord around left lower extremity). Anesthesia Type: Epidural. Amniotic Fluid Description: Clear. Episiotomy Type: None. Laceration: 2nd Degree (Midline), Cervical (3:00). Suture type: Other (Monocryl 2). Suture size: 3-0. Placenta : Intact, Spontaneous (1721 Wednesday06/07/19). Cord: 3 Vessels. Estimated Blood Loss: 500. Resuscitation Needed: No. : Suctioned, Bulb Syringe, Stimulated, Warmed, Reading Used, Warmer Used. Provider: Karri Dominguez. Score 1 min: 8. Score 5 min: 8. Induction Criteria. - Rene Score. Rene Score Dilation: 1-2 cm. Rene Score Effacement: 40-50% . Rene Score 's Station: -3. Rene Score Consistency: Soft. Rene Score Cervix Position: Posterior. Rene Score Total: 4. Rene Score Presenting Part: Reports: Cephalic. - Induction. Gestational Age >/= 39 wks: Yes. Medical Indication: Gestational diabetes. Estimated Pelvis: Reports: Adequate. Reassuring Monitoring Strip: Yes. Absence of Tachy Systole: Yes. - Augmentation. Estimated Pelvis: Reports: Adequate. Weight Estimated:: Reports: AGA. Reassuring Monitoring Strip: Yes. Absence of Tachy Systole: Yes. - General Info. Date of Service: 06/07/19. Functional Status: Reports: Pain Controlled. - Review of Systems. General: Reports: No Symptoms. HEENT: Reports: No Symptoms. Pulmonary: Reports: No Symptoms. Cardiovascular: Reports: No Symptoms. Gastrointestinal: Reports: No Symptoms. Genitourinary: Reports: No Symptoms. Musculoskeletal: Reports: No Symptoms. Skin: Reports: No Symptoms. Neurological: Reports: No Symptoms. Psychiatric: Reports: No Symptoms. - Patient Data. Vitals - Most Recent: Last Vital Signs. Temp 97.6 F 06/06/19 07:47. Pulse 94 06/06/19 07:47. Resp 16 07:47. BP 123/84 06/06/19 07:47. Pulse Ox. Weight - Most Recent: 207 lb. I&O - Last 24 Hours: Intake & Output. 06/07/1909/. 06:5914: 5922:59. Intake [id number]. [id number]. Lab Results Last 24 Hours: Laboratory Results - last 24 hr. 06/06/1909/Range/Units. 08:2320:2600:14. POC Glucose 89 82 (70-105) mg/dL. RPR Non-reactive (NONREACTIVE). 06/07/1909/ Range/Units. 04:2307:1312:45. POC Glucose 67 L 71 86 (70-105) mg /dL. RPR (NONREACTIVE). Med Orders - Current: Current Medications. Diphenhydramine HCl (Benadryl) 25 mg IVPUSH Q6H PRN. PRN Reason: pruritis. Ephedrine Sulfate (Ephedrine Sulfate) 5 mg IVPUSH ASDIRECTED PRN. PRN Reason: Hypotension. Last Admin: 06/07/19 13:55 Dose: 5 mg. Fentanyl (Sublimaze) 100 mcg EPIDUR Q3H PRN. PRN Reason: Pain. Last Admin: 06/07/19 10:29 Dose: 100 mcg. Fentanyl/Bupivacaine HCl (Fentanyl/Bupivacaine/Ns 2 Mcg-0.125% 250 Ml ) 2 mcg EPIDUR ONETIME PRN. PRN Reason: Cramping. Last Admin: 06/07/19 10:28 Dose: 2 mcg. Ampicillin Sodium 1 gm/ Sodium (Chloride) 100 mls @ 200 mls/hr IV Q4H JONATHAN. Last Admin: 06/07/19 15:43 Dose: 200 mls/hr. Lactated Ringer's ( Ringers, Lactated) 1,000 mls @ 100 mls/hr IV ASDIRECTED JONATHAN. Last Admin: 06/07 13:57 Dose: 100 mls/hr. Oxytocin/Lactated Ringer's (Pitocin In Lr 20 Units /1,000 Ml) 20 unit in 1,000 mls @ 500 mls/hr IV .CONTINUOUS JONATHAN. Last Admin: 06/07/19 15:47 Dose: 500 mls/hr. Oxytocin/Lactated Ringer's (Pitocin In Lr 10 Units/1,000 Ml) 10 unit in 1,000 mls @ 12 mls/hr IV TITRATE JONATHAN; Protocol. Last Titration: 06/07/19 14:05 Dose: 10 munits/min, 60 mls/hr. Nalbuphine HCl (Nubain) 10 mg IVPUSH Q2H PRN. PRN Reason: Pain. Ondansetron HCl (Zofran) 4 mg IVPUSH Q4H PRN. PRN Reason: Nausea/Vomiting. Sodium Chloride (Saline Flush ) 10 ml FLUSH ASDIRECTED PRN. PRN Reason: Keep Vein Open. Discontinued Medications. Ampicillin Sodium 2 gm/ Sodium (Chloride) 100 mls @ 200 mls/hr IV ONETIME ONE. Stop: 06/06/19 08:29. Last Admin: 06/06/19 08:01 Dose: 200 mls/hr. Misoprostol (Cytotec) 50 mcg VAG Q3H JONATHAN. Last Admin: 06/06/19 17:03 Dose: 25 mcg. Misoprostol (Cytotec) 25 mcg VAG Q3H JONATHAN. Last Admin: 08:51 Dose: Not Given. - Exam. General: Alert, Oriented. HEENT: Pupils Equal, Mucous Membr. Moist/Hood. Neck: Supple. Lungs: Clear to Auscultation, Normal Respiratory Effort. Cardiovascular: Regular Rate, Regular Rhythm. GI/ Abdominal Exam: Normal Bowel Sounds, Soft, Non-Tender. (Female) Exam: Normal External Exam. Extremities: Normal Inspection, Normal Range of Motion, Non-Tender, No Pedal Edema, Normal Capillary Refill. Skin: Warm, Dry, Intact. Psy/Mental Status: Alert, Normal Affect, Normal Mood. - Problem List & Annotations. (1) 39 weeks gestation of . SNOMED Code(s): 20392044. Code(s): Z3A.39 - 39 WEEKS GESTATION OF Status: Acute Current Visit: Yes. (2) Gestational diabetes mellitus (GDM) affecting , antepartum. SNOMED Code(s): 84707722176300, 18771705982593. Code(s): O24.419 - GESTATIONAL DIABETES MELLITUS IN , UNSP CONTROL Status: Acute Current Visit: Yes. (3) GBS (group B Streptococcus carrier), +RV culture, currently . SNOMED Code(s): 2290581845844, 423660075, 2694325036654. Code(s): O99.820 - STREPTOCOCCUS B CARRIER STATE COMPLICATING Status : Acute Current Visit: Yes. (4) Second degree laceration of perineum, delivered, current hospitalization. SNOMED Code(s): 231350318, 441537916. Code (s): O70.1 - SECOND DEGREE PERINEAL LACERATION DURING DELIVERY Status: Acute Current Visit: Yes. (5) Cervical laceration. SNOMED Code(s): 636824625. Code(s): S37.63XA - LACERATION OF UTERUS, INITIAL ENCOUNTER Status: Acute Current Visit: Yes. Qualifiers: Encounter type: initial encounter Qualified Code(s): S37.63XA - Laceration of uterus, initial encounter. Annotation/Comment :: sutured. - Problem List Review. Problem List Initiated/Reviewed/ Updated: No. - My Orders. Last 24 Hours: My Active Orders. 06/07/19 00:00. Blood Glucose Check, Bedside [RC] Q4HR. - Assessment. Assessment:: Delivered , Diagnosis: Stroke: No - Discharge Data Discharge Date: 06/09/19 Discharge Disposition: Home, Self-Care 01 Condition: Good - Referral to Home Health Primary Care Physician: Karri Dominguez MD - Discharge Diagnosis/Problem(s) (1) 39 weeks gestation of SNOMED Code(s): 52991166 ICD Code: Z3A.39 - 39 WEEKS GESTATION OF Status: Acute Current Visit: Yes (2) Gestational diabetes mellitus (GDM) affecting , antepartum SNOMED Code(s): 65162712568689, 52785963911686 ICD Code: O24.419 - GESTATIONAL DIABETES MELLITUS IN , UNSP CONTROL Status: Acute Current Visit: Yes (3) GBS (group B Streptococcus carrier), +RV culture, currently SNOMED Code(s): 3081654471212, 063616032, 8900680558371 ICD Code: O99.820 - STREPTOCOCCUS B CARRIER STATE COMPLICATING Status: Acute Current Visit: Yes (4) Second degree laceration of perineum, delivered, current hospitalization SNOMED Code(s): 669147157, 329549291 ICD Code: O70.1 - SECOND DEGREE PERINEAL LACERATION DURING DELIVERY Status : Acute Current Visit: Yes (5) Cervical laceration SNOMED Code(s): 634055795 ICD Code: S37.63XA - LACERATION OF UTERUS, INITIAL ENCOUNTER Status: Acute Current Visit: Yes Problem Details: sutured Qualifiers: Encounter type: initial encounter Qualified Code(s): S37.63XA - Laceration of uterus, initial encounter (6) Anemia, SNOMED Code(s): 321389412 ICD Code: O90.81 - ANEMIA OF THE PUERPERIUM Status: Acute Current Visit: Yes - Patient Summary/Data Complications: None Consults: None Hospital Course: Uneventful - Patient Instructions Diet: Usual Diet as Tolerated Driving: Do Not Drive (48 hours) Showering/Bathing: May Shower Notify Provider of: Fever, Increased Pain, Swelling and Redness, Drainage, Nausea and/or Vomiting - Discharge Plan *PRESCRIPTION DRUG MONITORING PROGRAM REVIEWED*: Not Applicable *COPY OF PRESCRIPTION DRUG MONITORING REPORT IN PATIENT MAURY: Not Applicable Home Medications: Home Meds Vits #93/Iron Fum/FA [ Formula Tablet] 1 each PO DAILY [History] Acetaminophen [Tylenol] 650 mg PO Q6H PRN tablet 06/09/19 [Rx] Benzocaine/Menthol [Dermoplast Pain Relief [place]] 1 spray TOP ASDIRECTED PRN canister 06/09/19 [Rx] Docusate Sodium [Colace] 100 mg PO BID PRN cap 06/09/19 [Rx] Ibuprofen [Motrin] 600 mg PO Q6H PRN tablet 06/09/19 [Rx] Lanolin [Lansinoh HPA] 1 applic TOP ASDIRECTED PRN tube 06/09/19 [Rx] Witch Stephanie [Tucks] 1 pad TOP ASDIRECTED PRN pad 06/09/19 [Rx] Referrals: Karri Dominguez MD [Primary Care Provider] - (Make an appointment to see me in 2 weeks. June 20) - Discharge Summary/Plan Comment DC Time >30 min.: No Discharge Summary/Plan Comment: EPDS 07/19 no suicidal plans are ideations no desire to hurt self or others. Declined medication. Just concerned about her having to be under the bili lights. - Patient Data Vitals - Most Recent: Last Vital Signs Temp 98.6 F 06/09/19 08:49 Pulse 76 06/09/19 08:49 Resp 16 06/09/19 08:49 BP 128/82 06/09/19 08:49 Pulse Ox 98 06/09/19 08:49 Weight - Most Recent: 207 lb Med Orders - Current: Current Medications Acetaminophen (Tylenol) 650 mg PO Q4H PRN PRN Reason: mild pain or fever Last Admin: 06/08/19 00:45 Dose: 650 mg Benzocaine/Menthol (Dermoplast Pain Relief [place]) 0 gm TOP ASDIRECTED PRN PRN Reason: Perineal Comfort Measure Last Admin: 06/07/19 19:20 Dose: 1 spray Docusate Sodium (Colace) 100 mg PO BID PRN PRN Reason: Constipation Last Admin: 06/08/19 09:09 Dose: 100 mg Emollient Ointment (Lansinoh Hpa) 0 gm TOP ASDIRECTED PRN PRN Reason: Sore Nipples Last Admin: 06/08/19 04:52 Dose: 1 dose Ibuprofen (Motrin) 600 mg PO Q4H PRN PRN Reason: Mild pain or fever Last Admin: 06/09/19 03:55 Dose: 600 mg Witch Stephanie (Tucks) 1 pad TOP ASDIRECTED PRN PRN Reason: Perineal Comfort Measure Last Admin: 06/07/19 19:19 Dose: 1 pad Discontinued Medications Bupivacaine HCl (Sensorcaine-Mpf 0.25%) 10 ml .ROUTE .STK-MED ONE Stop: 06/08/19 00:01 Diphenhydramine HCl (Benadryl) 25 mg IVPUSH Q6H PRN PRN Reason: pruritis Ephedrine Sulfate (Ephedrine Sulfate) 5 mg IVPUSH ASDIRECTED PRN PRN Reason: Hypotension Last Admin: 06/07/19 13:55 Dose: 5 mg Fentanyl (Sublimaze) 100 mcg EPIDUR Q3H PRN PRN Reason: Pain Last Admin: 06/07/19 10:29 Dose: 100 mcg Fentanyl/Bupivacaine HCl (Fentanyl/Bupivacaine/Ns 2 Mcg-0.125% 250 Ml) 2 mcg EPIDUR ONETIME PRN PRN Reason: Cramping Last Admin: 06/07/19 10:28 Dose: 2 mcg Ampicillin Sodium 2 gm/ Sodium (Chloride) 100 mls @ 200 mls/hr IV ONETIME ONE Stop: 06/06/19 08:29 Last Admin: 06/06/19 08:01 Dose: 200 mls/hr Ampicillin Sodium 1 gm/ Sodium (Chloride) 100 mls @ 200 mls/hr IV Q4H [facility] Last Admin: 06/07/19 15:43 Dose: 200 mls/hr Lactated Ringer's (Ringers, Lactated) 1,000 mls @ 100 mls/hr IV ASDIRECTED JONATHAN Last Admin: 06/07/19 13:57 Dose: 100 mls/hr Oxytocin/Lactated Ringer's (Pitocin In Lr 20 Units/1,000 Ml) 20 unit in 1,000 mls @ 500 mls/hr IV .CONTINUOUS JONATHAN Last Admin: 06/07/19 15:47 Dose: 500 mls/hr Oxytocin/Lactated Ringer's (Pitocin In Lr 10 Units/1,000 Ml) 10 unit in 1,000 mls @ 12 mls/hr IV TITRATE JONATHAN; Protocol Last Titration: 06/07/19 14:05 Dose: 10 munits/min, 60 mls/hr Misoprostol (Cytotec) 50 mcg VAG Q3H JONATHAN Last Admin: 06/06/19 17:03 Dose: 25 mcg Misoprostol (Cytotec) 25 mcg VAG Q3H JONATHAN Last Admin: 06/07/19 08:51 Dose: Not Given Nalbuphine HCl (Nubain) 10 mg IVPUSH Q2H PRN PRN Reason: Pain Ondansetron HCl (Zofran) 4 mg IVPUSH Q4H PRN PRN Reason: Nausea/Vomiting Sodium Chloride (Saline Flush) 10 ml FLUSH ASDIRECTED PRN PRN Reason: Keep Vein Open
[2019-06-09] MEDS: Docusate Sodium 100 MG Cap PO PRN (10:29)
== END 2019-06-09 11:27 | disposition home or self-care (01) | DRG 542 ==
LOC: JD.OB 07:20 → OBSVTOIN 06-07 17:18 → JD.OB 06-07 17:19
PROVIDERS: ADMIT Obstetrics & Gynecology; ATTEND Obstetrics & Gynecology
PROC: 10E0XZZ Delivery of Products of Conception, External Approach (ICD-10-PCS; principal; 2019-06-07)
PROC: 10907ZC Drainage of Amniotic Fluid, Therapeutic from Products of Conception, Via Natural or Artificial Opening (ICD-10-PCS; 2019-06-07)
PROC: 0KQM0ZZ Repair Perineum Muscle, Open Approach (ICD-10-PCS; 2019-06-07)
PROC: 0UQC7ZZ Repair Cervix, Via Natural or Artificial Opening (ICD-10-PCS; 2019-06-07)
DX: O24.420 Gestational diabetes mellitus in childbirth, diet controlled (principal); O99.824 Streptococcus B carrier state complicating childbirth; O70.1 Second degree perineal laceration during delivery; O71.3 Obstetric laceration of cervix; D64.9 Anemia, unspecified; O90.81 Anemia of the puerperium; O76 Abnormality in fetal heart rate and rhythm complicating labor and delivery; Z3A.39 39 weeks gestation of pregnancy; Z37.0 Single live birth; Z87.891 Personal history of nicotine dependence
CPT/HCPCS: 36415; 51701; 51702; 59025; 59409; 82962; 85025; 86592; 86850; 86900; 86901; A9270-GY; J0290; J2590; J3010; J3490; J7030; J7120

== ENCOUNTER 2020-01-22 18:32 | Emergency (ER) | payer BC, OTHER ==
--- NOTE | 2020-01-22 20:06 | EDM.PDOC ---
ED HPI GENERAL MEDICAL PROBLEM - General Chief Complaint: Lower Extremity Injury/Pain Stated Complaint: ANKLE PAIN Time Seen by Provider: 01/22/20 19:02 Source of Information: Reports: Patient History Limitations: Reports: No Limitations - History of Present Illness INITIAL COMMENTS - FREE TEXT/NARRATIVE: TRIAGE NOTE -- Pt states this morning she was walking out of her house and missed the last step hurting her R ankle. Pt states she was ok all day but then tonight when she got home the pain has worsened and she is not able to move or bear weight on it. [ End ] As above. Patient has not taken any medication or tried any other measure to moderate symptoms. No identified risk factors. There is pain in the right foot as well as ankle. No swelling noted no redness. No fever respiratory symptoms dysuria or any other symptoms of acute medical illness. Right Ankle Pain Score (Numeric/FACES): 7 - Related Data Allergies Allergy/AdvReac Type Severity Reaction Status Date / Time No Known Allergies Allergy Verified 01/22/20 19:08 Home Meds: Home Meds Vits #93/Iron Fum/FA [ Formula Tablet] 1 each PO DAILY [History] Acetaminophen [Tylenol] 650 mg PO Q6H PRN tablet 06/09/19 [Rx] Benzocaine/Menthol [Dermoplast Pain Relief [place]] 1 spray TOP ASDIRECTED PRN canister 06/09/19 [Rx] Docusate Sodium [Colace] 100 mg PO BID PRN cap 06/09/19 [Rx] Ibuprofen [Motrin] 600 mg PO Q6H PRN tablet 06/09/19 [Rx] Lanolin [Lansinoh HPA] 1 applic TOP ASDIRECTED PRN tube 06/09/19 [Rx] witch Mely [Tucks] 1 pad TOP ASDIRECTED PRN pad 06/09/19 [Rx] Past Medical History Cardiovascular History: Reports: None Respiratory History: Reports: None Gastrointestinal History: Reports: [employer] History: Reports: Endocrine/Metabolic History: Reports: Other (See Below) (Nirschl thyroidectomy for nodule as noted, no replacement required.) Other Endocrine/Metabolic History: Rt thyroidectomy Oncologic (Cancer) History: Reports: None - Infectious Disease History Infectious Disease History: Reports: Human Papilloma Virus (HPV) - Past Surgical History Endocrine Surgical History: Reports: Thyroid Biopsy, Thyroidectomy (Partial for nodule) - History Comment History Comment: prnatal vit. vits and probiiotic Social & Family History - Family History Family Medical History: Noncontributory - Tobacco Use Smoking Status *Q: Current Every Day Smoker Years of Tobacco use: 5 Packs/Tins Daily: 0.5 - Caffeine Use Caffeine Use: Reports: None - Recreational Drug Use Recreational Drug Use: No Review of Systems - Review of Systems Review Of Systems: Comprehensive ROS is negative, except as noted in HPI. ED EXAM, GENERAL - Physical Exam Exam: See Below Exam Limited By: No Limitations General Appearance: Alert, WD/WN, No Apparent Distress Eye Exam: Bilateral Eye: EOMI, PERRL Ears: Normal External Exam Nose: Normal Inspection Throat/Mouth: Normal Inspection, Normal Lips, Normal Voice, No Airway Compromise Head: Atraumatic, Normocephalic Neck: Normal Inspection, Supple Respiratory/Chest: No Respiratory Distress, Lungs Clear, Normal Breath Sounds Cardiovascular: Regular Rate, Rhythm GI/Abdominal: Soft, Non-Tender Back Exam: Normal Inspection Extremities: Normal Inspection, No Pedal Edema, Normal Capillary Refill, Other ( No gross abnormality on examination of right foot. No swelling no ecchymosis no deformity no instability. Some mild tenderness on deep palpation dorsum of foot proximally. Likewise some tenderness on palpation of the lateral malleolus.) Neurological: Alert, Oriented Psychiatric: Normal Affect, Normal Mood Skin Exam: Warm, Dry Course - Vital Signs Last Recorded V/S: Last Vital Signs Temp 36.4 C 01/22/20 19:06 Pulse 67 01/22/20 19:06 Resp 100 H 01/22/20 19:06 BP 106/82 01/22/20 19:06 Pulse Ox 100 01/22/20 19:06 - Orders/Labs/Meds Orders: Active Orders 24 hr Category Date Time Status Ankle 2V Rt [CR] Stat Exams 01/22/20 19:31 Taken Foot 2V Rt [CR] Stat Exams 01/22/20 19:31 Taken DME for Discharge [COMM] Click To Edit Oth 01/22/20 20:18 Ordered DME for Discharge [COMM] Stat Oth 01/22/20 20:19 Ordered - Re-Assessments/Exams Free Text/Narrative Re-Assessment/Exam: 01/22/20 20:21 X-rays of right ankle and foot do not show any obvious acute abnormality. Radiology report is pending. We will treat as a sprain with air splint and crutches for no weightbearing. See primary INES and if there is still a concern in the next day or so she may be referred by primary to orthopedics. Departure - Departure Time of Disposition: 20:22 Disposition: Home, Self-Care 01 Condition: Good Clinical Impression: Mild sprain of right ankle Qualifiers: Encounter type: initial encounter Qualified Code(s): S93.401A - Sprain of unspecified ligament of right ankle, initial encounter - Discharge Information Referrals: Maxine Mock PA-C [Primary Care Provider] - Forms: ED Department Discharge Additional Instructions: Been seen for pain in your right ankle and foot after a fall today. X-rays do not show any obvious fracture. We will treat as a sprain with a splint and crutches for no weightbearing. Radiologist has not seen the films and if there is any fracture noted by radiologist you will be notified. See your primary within the next day or so. If there still seems to be an issue that is not resolving primary can refer you to orthopedics. Return to ER for any pain that is unmanageable as well as any swelling discoloration fever or any other troubling symptoms. Sepsis Event Note - Evaluation Sepsis Screening Result: No Definite Risk - Focused Exam Vital Signs: Vital Signs Temp Pulse Resp BP Pulse Ox 01/22/20 19:06 36.4 C 67 100 H 106/82 100 Date Exam was Performed: 01/22/20 Time Exam was Performed: 20:20 - My Orders Last 24 Hours: My Active Orders 01/22/20 19:31 Ankle 2V Rt [CR] Stat Foot 2V Rt [CR] Stat 01/22/20 20:18 DME for Discharge [COMM] Click To Edit 01/22/20 20:19 DME for Discharge [COMM] Stat - Assessment/Plan Last 24 Hours: My Active Orders 01/22/20 19:31 Ankle 2V Rt [CR] Stat Foot 2V Rt [CR] Stat 01/22/20 20:18 DME for Discharge [COMM] Click To Edit 01/22/20 20:19 DME for Discharge [COMM] Stat
--- NOTE | 2020-01-22 20:32 | CR ---
Right foot: 2 views of the right foot were obtained. Comparison: No prior foot exam. Joint spaces are preserved. No fracture, dislocation or other bony abnormality is appreciated. Impression: 1. No abnormality is appreciated on 2 view right foot exam. Diagnostic code #1 This report was dictated in MDT
--- NOTE | 2020-01-22 20:32 | CR ---
Right ankle: 2 views of the right ankle were obtained. Comparison: No prior right ankle study is available. Ankle mortise is symmetric. No acute fracture or other bony abnormality is appreciated. Impression: 1. No abnormality is appreciated on 2 view right ankle exam. Diagnostic code #1 This report was dictated in MDT
== END 2020-01-22 20:45 | disposition home or self-care (01) ==
LOC: JD.ED 18:32
DX: S93.401A Sprain of unspecified ligament of right ankle, initial encounter (principal); F17.210 Nicotine dependence, cigarettes, uncomplicated; X58.XXXA Exposure to other specified factors, initial encounter; Y93.01 Activity, walking, marching and hiking
CPT/HCPCS: 73600-26-RT; 73600-RT; 73620-26-RT; 73620-RT; 99282; 99283-25

== ENCOUNTER 2023-12-17 10:29 | Emergency (ER) | payer BC, OTHER ==
[2023-12-17] MEDS: Ketorolac 60 MG/2 ML SDV IM ONE (11:42)
== END 2023-12-17 12:00 | disposition home or self-care (01) ==
LOC: JD.ED 10:29
DX: J01.00 Acute maxillary sinusitis, unspecified (principal); Z79.899 Other long term (current) drug therapy
CPT/HCPCS: 96372; 99283; J1885